=== PATIENT | female | born 1985 | race Two or more races ===

== ENCOUNTER 2017-07-18 14:32 | Emergency (ER) | payer SELFPAY ==
[~2017-07-18] VITALS: Ht 157.5 cm; Wt 49.9 kg
[2017-07-18] MEDS ORDERED: HYDROCODONE/APAP 5-325MG TABLET PO ONE (15:15)
[2017-07-18] MEDS ORDERED: HYDROCODONE/APAP 5-325MG TABLET ONE (15:19)
--- NOTE | 2017-07-18 16:08 | NUR ---
PT LEFT ER BEFORE RECIEVING FINGER SPLINT D/C INSTRUCTIONS.
--- NOTE | 2017-07-18 17:00 | NUR ---
PT CAME BACK AND AND RECIEVED THE D/C INSTRUCTION WITH THE PX OF TRAMADOL. PT ACCOMPANIED BY SO. Addendum: 07/18/17 at 1701 by LUIGI FINGER SPLINT PLACED PER MD ORDER. PT UDERSTANDS THAT NEEDS TO FOLLOW UP
== END 2017-07-18 17:03 | disposition home or self-care (01) ==
LOC: ER 14:32
DX: S62.633A Displaced fracture of distal phalanx of left middle finger, initial encounter for closed fracture (principal); S93.401A Sprain of unspecified ligament of right ankle, initial encounter; W01.0XXA Fall on same level from slipping, tripping and stumbling without subsequent striking against object, initial encounter; Y93.89 Activity, other specified; Y92.89 Other specified places as the place of occurrence of the external cause; Y99.8 Other external cause status
CPT/HCPCS: 73140; 73610; A4663